=== PATIENT | male | born 1955 | race Caucasian/White ===

== ENCOUNTER 2023-03-09 09:52 | Outpatient (CLI) | payer OTHER | END 2023-03-09 09:53 | disposition home or self-care (01) | LOC: CSHULT 09:52 | PROVIDERS: ATTEND Family Medicine | DX: G45.1 Carotid artery syndrome (hemispheric) (principal) | CPT/HCPCS: 93880 ==

== ENCOUNTER 2023-05-19 15:34 | Outpatient (CLI) | payer OTHER | END 2023-05-19 15:35 | disposition home or self-care (01) | LOC: CSHRAD 15:34 | PROVIDERS: ATTEND Otolaryngology Otolaryngic Allergy | DX: R05.3 Chronic cough (principal); J98.6 Disorders of diaphragm | CPT/HCPCS: 71046 ==

== ENCOUNTER 2023-06-09 13:02 | Outpatient (CLI) | payer OTHER ==
[~2023-06-09 13:02] MED LIST: Iopamidol 300 61% 100 ML VIAL FS ONE
== END 2023-06-09 13:03 | disposition home or self-care (01) ==
LOC: CSHCT 13:02
PROVIDERS: ATTEND Otolaryngology Otolaryngic Allergy
DX: G58.8 Other specified mononeuropathies (principal); I77.810 Thoracic aortic ectasia; J98.6 Disorders of diaphragm; J98.11 Atelectasis; R91.1 Solitary pulmonary nodule
CPT/HCPCS: 70491; 71260; 82565; Q9967